=== PATIENT | female | born 1985 | race Caucasian/White ===

== ENCOUNTER 2016-08-23 20:15 | Emergency (ER) | payer MEDICAID ==
[2016-08-23 20:30] LABS: URINE APPEARANCE CLEAR; URINE BILIRUBIN NEGATIVE (NEGATIVE); URINE BLOOD NEGATIVE (NEGATIVE); URINE COLOR YELLOW; URINE GLUCOSE (UA) NEGATIVE (NEGATIVE); URINE KETONE NEGATIVE (NEGATIVE); URINE LEUKOCYTE ESTERASE TRACE (NEGATIVE); URINE NITRITE NEGATIVE (NEGATIVE); URINE PROTEIN NEGATIVE (NEGATIVE); URINE UROBILINOGEN 0.2 E.U./dL (0.20 - 1.00)
[2016-08-23 20:33] LABS: HCG,QUALITATIVE URINE NEGATIVE (NEGATIVE)
--- NOTE | 2016-08-23 20:39 | Emergency Department Record ---
History of Present Illness - General Chief complaint: Female Urogenital Problem Stated complaint: POSS UTI Time Seen by Provider: 08/23/16 20:38 Source: Patient Mode of Arrival: Ambulatory Limitations: No limitations - History of Present Illness Initial comments: The patient is here due to mild dysuria and urinary urgency for 3 days off and on. She denies any AP, nausea, vomiting, fever, or back pain. MD Complaint: Dysuria Onset/Timin -: Days(s) Radiation: Other Severity: Mild Quality: Other Consistency: Intermittent Improves with: None Worsens with: Urination LMP Date: 08/10/16 Gestational Age (wks) based on LMP: 1 Associated Symptoms: Denies other symptoms - Related Data Previous Rx's Medication Instructions Recorded Sulfamethoxazole/Trimethoprim 1 tab PO BID #6 tab 08/23/16 [Bactrim Ds] Allergies Allergy/AdvReac Type Severity Reaction Status Date / Time No Known Allergies Allergy Unverified 04/04/16 12:33 Travel Screening - Travel/Exposure Within Last 30 Days Have you traveled within the last 30 days?: No - Travel/Exposure Within Last Year Have you traveled outside the [place] in the last year?: No - Additonal Travel Details Have you been exposed to anyone with a communicable illness?: No - Travel Symptoms Symptom Screening: None Review of Systems Constitutional: Denies: Chills, Fever Eyes: Denies: Eye discharge ENT: Denies: Congestion Respiratory: Denies: Cough Past Medical History - SOCIAL HISTORY Smoking Status: Current every day smoker Alcohol Use: Occassional Drug Use: None - RESPIRATORY Hx Respiratory Disorders: No - CARDIOVASCULAR Hx Cardio Disorders: No - NEURO Hx Neuro Disorders: No - GI Hx GI Disorders: No - Hx Genitourinary Disorders: No - ENDOCRINE Hx Endocrine Disorders: No - MUSCULOSKELETAL Hx Musculoskeletal Disorders: No - PSYCH Hx Psych Problems: No - HEMATOLOGY/ONCOLOGY Hx Hematology/Oncology Disorders: No Family Medical History Any Significant Family History?: No Physical Exam - General General Appearance: Alert, Oriented x3, Cooperative, No acute distress - Head Head exam: Atraumatic, Normocephalic, Normal inspection - Eye Eye exam: Normal appearance, PERRL - Neck Neck exam: Normal inspection, Full ROM. negative: Tenderness - Respiratory Respiratory exam: Normal lung sounds bilaterally. negative: Respiratory distress - Cardiovascular Cardiovascular Exam: Regular rate, Normal rhythm, Normal heart sounds - GI/Abdominal GI/Abdominal exam: Soft, Normal bowel sounds. negative: Guarding, Rebound, Rigid, Tenderness Course Vital Signs 08/23/16 20:19 Temperature 98.7 F Pulse Rate 80 Respiratory 20 Rate Blood Pressure 116/65 Pulse Ox 100 - Reevaluation(s) Reevaluation #1: I did discuss the plan with the patient and the need for F/U if not better. 08/23/16 20:58 Medical Decision Making - Data Complexity MDM Data: Labs Ordered and/or Reviewed (UA: Mild WBC's and bacteria.) - Lab Data Lab Results 08/23/16 Range/Units 20:31 Urine Color Yellow Urine Appearance Clear Urine pH 6.0 (5.0-8.0) Ur Specific [place] 1.020 (1.002-1.030) Urine Protein Negative (NEGATIVE) Urine Glucose (UA) Negative (NEGATIVE) Urine Ketones Negative (NEGATIVE) Urine Blood Negative (NEGATIVE) Urine Nitrite Negative (NEGATIVE) Urine Bilirubin Negative (NEGATIVE) Urine Urobilinogen 0.2 (0.20 - 1.00) E.U./dL Ur Leukocyte Esterase Trace H (NEGATIVE) Urine HCG, Qual Negative (NEGATIVE) Disposition Disposition: Discharge Clinical Impression: Cystitis Disposition: Home, Self-Care Condition: (1) Good Instructions: Urinary Tract Infection in Women (ED) Additional Instructions: Please take the Bactrim as directed. Please see your PCP if not better in 2-3 days. Return to the ER if worse. Prescriptions: Sulfamethoxazole/Trimethoprim [Bactrim Ds] 1 tab PO BID #6 tab Forms: Patient Portal Access Time of Disposition: 20:59
[2016-08-23 20:51] LABS: URINE BACTERIA FEW; URINE RBC 0 - 2 (NONE SEEN)
[2016-08-23 20:52] LABS: URINE MUCUS LIGHT
[2016-08-23] MEDS: TMP/SMZ 160MG/800MG TAB PO ONE (21:02)
== END 2016-08-23 21:03 | disposition home or self-care (01) ==
LOC: ER 20:15
DX: N30.91 Cystitis, unspecified with hematuria (principal)
CPT/HCPCS: 81001; 81025; J3490; 99282

== ENCOUNTER 2016-08-31 04:56 | Emergency (ER) | payer MEDICAID ==
[2016-08-31 05:07] LABS: URINE APPEARANCE SL CLOUDY; URINE BILIRUBIN NEGATIVE (NEGATIVE); URINE BLOOD LARGE (NEGATIVE); URINE COLOR YELLOW; URINE GLUCOSE (UA) NEGATIVE (NEGATIVE); URINE KETONE NEGATIVE (NEGATIVE); URINE LEUKOCYTE ESTERASE LARGE (NEGATIVE); URINE NITRITE NEGATIVE (NEGATIVE)
[2016-08-31 05:14] LABS: URINE WBC 36 - 50 (0-2/hpf)
[2016-08-31 05:15] LABS: URINE BACTERIA 1+
[2016-08-31] MEDS ORDERED: NITROFURANTOIN MONO 100 MG CAPSULE PO ONE (05:21)
[2016-08-31] MEDS ORDERED: METRONIDAZOLE 250 MG TABLET PO ONE (05:21)
--- NOTE | 2016-08-31 05:21 | Emergency Department Record ---
History of Present Illness - General Chief complaint: Female Urogenital Problem Stated complaint: UTI Time Seen by Provider: 08/31/16 05:15 Source: Patient Mode of Arrival: Ambulatory Limitations: No limitations - History of Present Illness Initial comments: 30 yo female presents to ED with a CC of dysuria symptoms. Patient was seen approximately 1 week ago, diagnosed with UTI and treated with Bactrim for 3 days. Patient reports that the symptoms have worsened following treatment. Patient denies vaginal discharge symptoms but reports "I have a new sexual partner and just want to get checked for everything". Patient denies abdominal pain, nausea, vomiting, or change in stools. MD Complaint: Dysuria Onset/Timin -: Days(s) Severity: Moderate Consistency: Getting worse Improves with: None Worsens with: [place], Urination Patient : No Associated Symptoms: Dysuria - Related Data Sexually active: Yes (new partner 2 weeks ago) Previous Rx's Medication Instructions Recorded Metronidazole [Flagyl] 500 mg PO TID #21 tablet 08/31/16 Nitrofurantoin [place] [Macrobid] 100 mg PO BID #13 capsule 08/31/16 Allergies Allergy/AdvReac Type Severity Reaction Status Date / Time No Known Allergies Allergy Unverified 04/04/16 12:33 Travel Screening - Travel/Exposure Within Last 30 Days Have you traveled within the last 30 days?: No Review of Systems Constitutional: Denies: Chills, Fever, Malaise, Night sweats Eyes: Denies: Eye discharge, Eye pain ENT: Denies: Congestion, Ear pain, Epistaxis Respiratory: Denies: Cough, Dyspnea Cardiovascular: Denies: Chest pain, Dyspnea on exertion, Palpitations Endocrine: Denies: Fatigue, Heat or cold intolerance Gastrointestinal: Denies: Abdominal pain, Nausea, Vomiting Genitourinary: Reports: Dysuria. Denies: Frequency, Hematuria, Incontinence Musculoskeletal: Denies: Arthralgia, Back pain Skin: Denies: Bruising, Change in color Neurological: Denies: Abnormal gait, Confusion, Headache, Seizure Psychiatric: Denies: Anxiety Hematological/Lymphatic: Denies: Anemia, Blood Clots Past Medical History - SOCIAL HISTORY Smoking Status: Current every day smoker Alcohol Use: None Drug Use: None - RESPIRATORY Hx Respiratory Disorders: No - CARDIOVASCULAR Hx Cardio Disorders: No - NEURO Hx Neuro Disorders: No - GI Hx GI Disorders: No - Hx Genitourinary Disorders: No - ENDOCRINE Hx Endocrine Disorders: No - MUSCULOSKELETAL Hx Musculoskeletal Disorders: No - PSYCH Hx Psych Problems: No - HEMATOLOGY/ONCOLOGY Hx Hematology/Oncology Disorders: No Family Medical History Any Significant Family History?: Yes Hx Cancer: Mother, Grandparents *Cancer Comment: M-Colorectal, *Diabetes Comment: Uncle Hx HTN: Grandparents Physical Exam - General General Appearance: Alert, Oriented x3, Cooperative, No acute distress, Other ( on her mobile phone throughtout the examination) Limitations: No limitations - Head Head exam: Atraumatic, Normocephalic, Normal inspection Head exam detail: negative: Abrasion, Contusion, Thomas's sign, General tenderness, Hematoma, Laceration - Eye Eye exam: Normal appearance. negative: Conjunctival injection, Periorbital swelling, Periorbital tenderness, Scleral icterus - ENT Ear exam: negative: Auricular hematoma, Auricular trauma Nasal Exam: negative: Active bleeding, Discharge, Dried blood, Foreign body Mouth exam: negative: Drooling, Laceration, Muffled voice, Tongue elevation - Neck Neck exam: Normal inspection. negative: Meningismus, Tenderness - Respiratory Respiratory exam: Normal lung sounds bilaterally. negative: Respiratory distress, Rhonchi, Stridor, Wheezes - Cardiovascular Cardiovascular Exam: Regular rate, Normal rhythm, Normal heart sounds - GI/Abdominal GI/Abdominal exam: Soft. negative: Distended, Rebound, Rigid, Tenderness - Rectal Rectal exam: Deferred - exam: Cervical discharge (mild). negative: Vaginal bleeding, Vaginal erythema - Extremities Extremities exam: Normal inspection. negative: Calf tenderness, Pedal edema, Tenderness - Back Back exam: Reports: Normal inspection. Denies: CVA tenderness (R), CVA tenderness (L) - Neurological Neurological exam: Alert, Normal gait, Oriented X3 - Psychiatric Psychiatric exam: Normal affect, Normal mood - Skin Skin exam: Normal color. negative: Abrasion Type of lesion: negative: abrasion Course Vital Signs 08/31/16 05:02 Temperature 97.7 F Pulse Rate 88 Respiratory 18 Rate Blood Pressure 118/76 Pulse Ox 98 - Reevaluation(s) Reevaluation #1: 08/31/16 05:22 Wet prep reviewed and appears to have numerous clue cells present. UA reviewed and as well, mild contamination is present, but also c/w UTI. Will treat with Macrobid and Flagyl for treatment of each with instructions to follow-up with her PCP in 3-5 days as directed. Medical Decision Making - Lab Data Lab Results 08/31/16 Range/Units 05:08 Urine Color Yellow Urine Appearance Sl cloudy Urine pH 6.0 (5.0-8.0) Ur Specific [place] 1.025 (1.002-1.030) Urine Protein 100 mg/dl H (NEGATIVE) Urine Glucose (UA) Negative (NEGATIVE) Urine Ketones Negative (NEGATIVE) Urine Blood Large H (NEGATIVE) Urine Nitrite Negative (NEGATIVE) Urine Bilirubin Negative (NEGATIVE) Urine Urobilinogen 1.0 (0.20 - 1.00) E.U./dL Ur Leukocyte Esterase Large H (NEGATIVE) Urine RBC 3 - 6 (NONE SEEN) Urine WBC 36 - 50 (0-2/hpf) Ur Epithelial Cells 3 - 6 (FEW) Urine Bacteria 1+ Disposition Disposition: Discharge Clinical Impression: Bacterial vaginosis Urinary Tract Infection Qualifiers: Urinary tract infection type: acute cystitis Hematuria presence: with hematuria Qualified Code(s): N30.01 - Acute cystitis with hematuria Disposition: Home, Self-Care Condition: (2) Stable Instructions: Bacterial Vaginosis (ED) Additional Instructions: Return to ED if your symptoms worsen or if you have any concerns. Flagyl and Macrobid as directed for 1 week. Follow-up with your family doctor in 3-5 days as directed. Prescriptions: Metronidazole [Flagyl] 500 mg PO TID #21 tablet Nitrofurantoin [place] [Macrobid] 100 mg PO BID #13 capsule Forms: Patient Portal Access Time of Disposition: 05:26
[2016-09-01 16:08] LABS: GC SPECIMEN TYPE Cervix (())
== END 2016-08-31 05:34 | disposition home or self-care (01) ==
LOC: ER 04:56
DX: N76.0 Acute vaginitis (principal); N30.01 Acute cystitis with hematuria
CPT/HCPCS: 99284 ×2; 81001; 87205; 87086; Q0111; 87210

== ENCOUNTER 2016-12-10 18:16 | Emergency (ER) | payer MEDICAID ==
--- NOTE | 2016-12-10 18:38 | Emergency Department Record ---
History of Present Illness - General Chief Complaint: Back Pain/Injury Stated Complaint: ABD PAIN AND LOWER BACK PAIN Time Seen by Provider: 12/10/16 18:18 Source: Patient Mode of Arrival: Ambulatory Limitations: No limitations - History of Present Illness Initial Comments: 31 yo female with a past medical history significant for UTIs presents to ED with dysuria symptoms and low back pain bilaterally that began yesterday morning. Patient denies fevers, chills, or change in stools, denies previous abdominal surgeries, and denies health problems at her baseline. Patient reports taking cranberry pills and Azo without improvement in her symptoms, and the patient denies vaginal discharge symptoms. Patient denies history of kidney stones. MD Complaint: Back pain, Other Onset/Timin -: Days(s) Similar Symptoms Previously: Yes Severity: Moderate Quality: Aching Consistency: Constant Improves With: None Worsens With: Walking Context: Other (Previous UTIs) Associated Symptoms: Abdominal pain, Other Treatments Prior to Arrival: Other medications Treatment Prior to Arrival Comment:: AZO and cranberry pills - Related Data Previous Rx's Medication Instructions Recorded Nitrofurantoin [place] [Macrobid] 100 mg PO BID #14 capsule 12/10/16 Phenazopyridine HCl [Pyridium] 200 mg PO TID #6 tab 12/10/16 Allergies Allergy/AdvReac Type Severity Reaction Status Date / Time No Known Allergies Allergy PT UNSURE Verified 12/10/16 18:22 OF REACTION Travel Screening - Travel/Exposure Within Last 30 Days Have you traveled within the last 30 days?: No - Travel/Exposure Within Last Year Have you traveled outside the [place] in the last year?: No - Additonal Travel Details Have you been exposed to anyone with a communicable illness?: No - Travel Symptoms Symptom Screening: None Review of Systems Constitutional: Denies: Chills, Fever, Malaise, Night sweats Eyes: Denies: Eye discharge, Eye pain ENT: Denies: Congestion, Ear pain, Epistaxis Respiratory: Denies: Cough, Dyspnea Cardiovascular: Denies: Chest pain, Dyspnea on exertion Endocrine: Denies: Fatigue, Heat or cold intolerance Gastrointestinal: Reports: Abdominal pain. Denies: Nausea, Vomiting Genitourinary: Reports: Dysuria, Frequency. Denies: Hematuria, Incontinence, Retention Musculoskeletal: Reports: Back pain. Denies: Arthralgia, Gout, Joint swelling Skin: Denies: Bruising, Change in color Neurological: Denies: Abnormal gait, Confusion, Headache, Tingling Psychiatric: Denies: Anxiety Hematological/Lymphatic: Denies: Anemia, Blood Clots Past Medical History - SOCIAL HISTORY Smoking Status: Current every day smoker Alcohol Use: Rare Drug Use: None - RESPIRATORY Hx Respiratory Disorders: No - CARDIOVASCULAR Hx Cardio Disorders: No - NEURO Hx Neuro Disorders: No - GI Hx GI Disorders: No - Hx Genitourinary Disorders: No - ENDOCRINE Hx Endocrine Disorders: No - MUSCULOSKELETAL Hx Musculoskeletal Disorders: No - PSYCH Hx Psych Problems: No - HEMATOLOGY/ONCOLOGY Hx Hematology/Oncology Disorders: No Family Medical History Any Significant Family History?: Yes Hx Cancer: Mother, Grandparents *Cancer Comment: M-Colorectal, *Diabetes Comment: Uncle Hx HTN: Grandparents Physical Exam - General General Appearance: Alert, Oriented x3, Cooperative, No acute distress Limitations: No limitations - Head Head exam: Atraumatic, Normocephalic, Normal inspection Head exam detail: negative: Abrasion, Contusion, Thomas's sign, General tenderness, Hematoma, Laceration - Eye Eye exam: Normal appearance. negative: Conjunctival injection, Periorbital swelling, Periorbital tenderness, Scleral icterus - ENT Ear exam: negative: Auricular hematoma, Auricular trauma Nasal Exam: negative: Active bleeding, Discharge, Dried blood, Foreign body Mouth exam: negative: Drooling, Laceration, Muffled voice, Tongue elevation - Neck Neck exam: Normal inspection. negative: Meningismus, Tenderness - Respiratory Respiratory exam: Normal lung sounds bilaterally. negative: Respiratory distress, Rhonchi, Stridor, Wheezes - Cardiovascular Cardiovascular Exam: Regular rate, Normal rhythm, Normal heart sounds - GI/Abdominal GI/Abdominal exam: Soft, Tenderness (Mild TTP over samson lower quadrants and suprapubic region bilaterally). negative: Organomegaly, Rebound, Rigid - Rectal Rectal exam: Deferred - exam: Deferred - Extremities Extremities exam: Normal inspection. negative: Calf tenderness, Pedal edema, Tenderness - Back Back exam: Denies: CVA tenderness (R), CVA tenderness (L) - Neurological Neurological exam: Alert, Normal gait, Oriented X3 - Psychiatric Psychiatric exam: Normal affect, Normal mood - Skin Skin exam: Normal color. negative: Abrasion Type of lesion: negative: abrasion Course Vital Signs 12/10/16 18:23 Temperature 98.1 F Pulse Rate 74 Respiratory 18 Rate Blood Pressure 133/82 Pulse Ox 98 - Reevaluation(s) Reevaluation #1: 12/10/16 19:29 UA reviewed, appears contaminated but also c/w UTI. Offered the patient laboratory studies (declined), and offered transfer for US imaging of the pelvis (declined). Will initiate treatment with Macrobid and Pyridium for her symptoms. Patient's examination does not appear c/w appendicitis, CT imaging does not appear indicated at this time. Patient has no unilateral flank pain symptoms to suggest ureteral calculus either. Patient appears stable for discharge with treatment for UTI per her preference. Patient was encouraged to return for any worsening of her symptoms. Disposition Disposition: Discharge Clinical Impression: UTI (urinary tract infection) Qualifiers: Urinary tract infection type: acute cystitis Hematuria presence: with hematuria Qualified Code(s): N30.01 - Acute cystitis with hematuria Disposition: Home, Self-Care Condition: (2) Stable Instructions: Urinary Tract Infection in Women (ED) Additional Instructions: Return to ED if your symptoms worsen or if you have any concerns. Macrobid and Pyridium as directed. Follow-up with your family doctor in 1-3 days as directed. Prescriptions: Nitrofurantoin [place] [Macrobid] 100 mg PO BID #14 capsule Phenazopyridine HCl [Pyridium] 200 mg PO TID #6 tab Forms: Patient Portal Access Time of Disposition: 19:34
[2016-12-10 18:50] LABS: URINE APPEARANCE CLEAR; URINE BILIRUBIN NEGATIVE (NEGATIVE); URINE BLOOD MODERATE (NEGATIVE); URINE COLOR YELLOW; URINE GLUCOSE (UA) NEGATIVE (NEGATIVE); URINE KETONE NEGATIVE (NEGATIVE); URINE LEUKOCYTE ESTERASE MODERATE (NEGATIVE); URINE NITRITE NEGATIVE (NEGATIVE); URINE PROTEIN TRACE (NEGATIVE); URINE UROBILINOGEN 0.2 E.U./dL (0.20 - 1.00)
[2016-12-10 18:58] LABS: URINE BACTERIA 2+; URINE WBC 21 - 35 (0-2/hpf)
[2016-12-10] MEDS: IBUPROFEN 400 MG TABLET PO ONE (19:27)
[2016-12-10] MEDS: NITROFURANTOIN MONO 100 MG CAPSULE PO ONE (19:49)
[2016-12-10] MEDS: PHENAZOPYRIDINE HCL 95 MG TABLET PO ONE (19:49)
[2016-12-10] MEDS ORDERED: AMOXICILLIN 400 MG/5 ML ML PO ONE (19:54)
== END 2016-12-10 19:54 | disposition home or self-care (01) ==
LOC: ER 18:16
DX: N30.01 Acute cystitis with hematuria (principal); M54.5 Low back pain
CPT/HCPCS: 81001; 99282

== ENCOUNTER 2017-07-16 19:51 | Emergency (ER) | payer MEDICAID ==
[2017-07-16] MEDS ORDERED: CEPHALEXIN 500 MG CAPSULE PO STA (20:17)
--- NOTE | 2017-07-16 20:20 | Emergency Department Record ---
History of Present Illness - General Chief Complaint: Ankle/Foot Injury Stated Complaint: RT ANKLE SWELLING Source: Patient Mode of Arrival: Ambulatory Limitations: No limitations - History of Present Illness Initial Comments: 31 yo female presents to ED for evaluation of redness, pain, and soft-tissue- swelling over the right lateral ankle that began this morning. Patient denies injury, denies fevers, chills, or recent illness. Patient denies calf pain or swelling symptoms, and denies health problems at her baseline. Patient does reports that she is 23 weeks . MD Complaint: Other (ankle swelling/pain) Onset/Timin -: Days(s) Injury: Ankle: Right Place: Home Severity: Moderate Improves With: Nothing Worsens With: Nothing Associated Symptoms: Swelling - Related Data Home Medications Medication Instructions Recorded Confirmed Last Taken Bupropion HCl [Wellbutrin Xl] 150 mg PO DAILY 07/16/17 07/16/17 Unknown Fluoxetine HCl [Prozac] 40 mg PO DAILY 07/16/17 07/16/17 Unknown Pnv No.95/Ferrous Fum/Folic AC 1 each PO DAILY 07/16/17 07/16/17 Unknown [ Multivitamin Tablet] Previous Rx's Medication Instructions Recorded Cephalexin [Keflex] 500 mg PO QID #27 cap 07/16/17 Allergies Allergy/AdvReac Type Severity Reaction Status Date / Time No Known Allergies Allergy PT UNSURE Verified 12/10/16 18:22 OF REACTION Review of Systems Constitutional: Denies: Chills, Fever, Malaise, Night sweats Eyes: Denies: Eye discharge, Eye pain ENT: Denies: Congestion, Ear pain, Epistaxis Respiratory: Denies: Cough, Dyspnea Cardiovascular: Denies: Chest pain, Dyspnea on exertion Endocrine: Denies: Fatigue, Heat or cold intolerance Gastrointestinal: Denies: Abdominal pain, Nausea, Vomiting Genitourinary: Denies: Incontinence, Retention Musculoskeletal: Denies: Arthralgia, Back pain Skin: Reports: Change in color (redness to the right lateral ankle). Denies: Bruising Neurological: Denies: Abnormal gait, Confusion, Headache, Seizure Psychiatric: Denies: Anxiety Hematological/Lymphatic: Denies: Anemia, Blood Clots Past Medical History - SOCIAL HISTORY Smoking Status: Current every day smoker Drug Use: None - RESPIRATORY Hx Respiratory Disorders: No - CARDIOVASCULAR Hx Cardio Disorders: No - NEURO Hx Neuro Disorders: No - GI Hx GI Disorders: No - Hx Genitourinary Disorders: No - ENDOCRINE Hx Endocrine Disorders: No - MUSCULOSKELETAL Hx Musculoskeletal Disorders: No - PSYCH Hx Psych Problems: No - HEMATOLOGY/ONCOLOGY Hx Hematology/Oncology Disorders: No Family Medical History Hx Cancer: Mother, Grandparents *Cancer Comment: M-Colorectal, *Diabetes Comment: Uncle Hx HTN: Grandparents Physical Exam - General General Appearance: Alert, Oriented x3, Cooperative, No acute distress Limitations: No limitations - Head Head exam: Atraumatic, Normocephalic, Normal inspection Head exam detail: negative: Abrasion, Contusion, Thomas's sign, General tenderness, Hematoma, Laceration - Eye Eye exam: Normal appearance. negative: Conjunctival injection, Periorbital swelling, Periorbital tenderness, Scleral icterus - ENT Ear exam: negative: Auricular hematoma, Auricular trauma Nasal Exam: negative: Active bleeding, Discharge, Dried blood, Foreign body Mouth exam: negative: Drooling, Laceration, Muffled voice, Tongue elevation - Neck Neck exam: Normal inspection. negative: Meningismus, Tenderness - Respiratory Respiratory exam: Normal lung sounds bilaterally. negative: Rales, Respiratory distress, Rhonchi, Stridor - Cardiovascular Cardiovascular Exam: Regular rate, Normal rhythm, Normal heart sounds - GI/Abdominal GI/Abdominal exam: Soft. negative: Rebound, Rigid, Tenderness - Rectal Rectal exam: Deferred - exam: Deferred - Extremities Extremities exam: Tenderness, Other (Mild STS/erythema to the right lateral ankle, mild induration present, no fluctuance present. Symptoms appear c/w cellulitis, no cliniacl evidence for abscess. No calf pain/popliteal pain symptoms are present on examination.). negative: Calf tenderness, Pedal edema - Back Back exam: Denies: CVA tenderness (R), CVA tenderness (L) - Neurological Neurological exam: Alert, Normal gait, Oriented X3 - Psychiatric Psychiatric exam: Normal affect, Normal mood - Skin Skin exam: Erythema Type of lesion: negative: abrasion Distribution of rash: RLE Course Vital Signs 07/16/17 20:12 Temperature 98.8 F Pulse Rate [ 90 Pulse Ox Probe] Respiratory 20 Rate Blood Pressure 116/64 [Left Arm] Pulse Ox 100 - Reevaluation(s) Reevaluation #1: 07/16/17 20:27 Symptoms appear c/w cellulitis, will initiate treatment with Keflex (no previous MRSA history), patient appears stable for discharge at this time. Disposition Disposition: Discharge Clinical Impression: Cellulitis Qualifiers: Site of cellulitis: extremity Site of cellulitis of extremity: lower extremity Laterality: right Qualified Code(s): L03.115 - Cellulitis of right lower limb Disposition: Home, Self-Care Condition: (2) Stable Instructions: Cellulitis (ED) Additional Instructions: Return to ED if your symptoms worsen or if you have any concerns. Keflex as directed. Follow-up with your family doctor in 3-5 days as directed. Prescriptions: Cephalexin [Keflex] 500 mg PO QID #27 cap Forms: Patient Portal Access Time of Disposition: 20:19 Quality - Quality Measures Quality Measures: N/A - Blood Pressure Screening Does Patient Have Any of the Following: No Blood Pressure Classification: Normal BP Reading Systolic Measurement: 118 Diastolic Measurement: 64 Screening for High Blood Pressure: < Normal BP, F/U Not Required > [[id number]]
== END 2017-07-16 20:36 | disposition home or self-care (01) ==
LOC: ER 19:51
DX: L03.115 Cellulitis of right lower limb (principal)
CPT/HCPCS: 99282

== ENCOUNTER 2018-07-27 16:07 | Emergency (ER) | payer MEDICAID ==
[2018-07-27 16:54] LABS: BASO % 0.2 % (0-6); GRAN % 66.7 % (47-80); HEMATOCRIT 39.5 % (35.0-47.0); HEMOGLOBIN 12.9 gm/dl (11.6-16.0); LYMPH % 25.9 % (16-45); MEAN CELL VOLUME 88.8 fl (81-97); MEAN CORPUSCULAR HGB CONC 32.7 g/dl (32-36); MEAN PLATELET VOLUME 10.2 fl (7.4-10.4); MONO % 5.2 % (0-9); PLATELET COUNT 238 K/uL (130-400); RED BLOOD COUNT 4.45 M/uL (3.80-5.40); RED CELL DISTRIBUTION WIDTH 14.1 % (11.5-14.5); WHITE BLOOD COUNT W/O DIFF 8.8 K/uL (4.2-12.2)
[2018-07-27] MEDS: CLINDAMYCIN 600MG/50ML PREMIX 600 MG/50 ML BAG IVPB ONE (16:56)
--- NOTE | 2018-07-27 17:56 | Emergency Department Record ---
History of Present Illness - General Chief complaint: Extremity Problem Stated complaint: INFECTION ON RT FOOT Time Seen by Provider: 07/27/18 16:18 Source: Patient Mode of Arrival: Ambulatory Limitations: No limitations - History of Present Illness Initial comments: pt has had a cyst on her lateral malleolus for a year. she was told it was a ganglion cyst. she banged it and now it is red, has swelling. she went to [facility] yesterday and was started on keflex. it has gotten worse. MD Complaint: Extremity pain, Extremity swelling Onset/Timin -: Days(s) Location: Right, Ankle History of Same: No Severity scale (1-10): 6 Quality: Aching Consistency: Constant Improves with: Immobilization Worsens with: Walking, Weight bearing Associated Symptoms: Denies other symptoms - Related Data Previous Rx's Medication Instructions Recorded Clindamycin HCl 150 mg PO Q8HR #30 capsule 07/27/18 Clindamycin HCl 300 mg PO Q8HR #30 capsule 07/27/18 Hydrocodone/Acetaminophen [[place] 1 each PO Q6HR #7 tablet 07/27/18 5-325 Tablet] Allergies Allergy/AdvReac Type Severity Reaction Status Date / Time No Known Allergies Allergy PT UNSURE Verified 07/27/18 16:16 OF REACTION Travel Screening - Travel/Exposure Within Last 30 Days Have you traveled within the last 30 days?: No Review of Systems Reviewed: No additional complaints except as noted below Constitutional: Reports: As per HPI. Denies: Chills, Fever, Malaise, Night sweats, Weakness, Weight change Eyes: Reports: As per HPI. Denies: Eye discharge, Eye pain, Photophobia, Vision change ENT: Reports: As per HPI. Denies: Congestion, Dental pain, Ear pain, Epistaxis , Hearing loss, Throat pain Respiratory: Reports: As per HPI. Denies: Cough, Dyspnea, Hemoptysis, Stridor, Wheezes Cardiovascular: Reports: As per HPI. Denies: Arrhythmia, Chest pain, Dyspnea on exertion, Edema, Murmurs, Orthopnea, Palpitations, Paroxysmal nocturnal dyspnea, Rheumatic Fever, Syncope Endocrine: Reports: As per HPI. Denies: Fatigue, Heat or cold intolerance, Polydipsia, Polyuria Gastrointestinal: Reports: As per HPI. Denies: Abdominal pain, Constipation, Diarrhea, Hematemesis, Hematochezia, Melena, Nausea, Vomiting Genitourinary: Reports: As per HPI. Denies: Abnormal menses, Discharge, Dyspareunia, Dysuria, Frequency, Hematuria, Incontinence, Retention, Urgency Musculoskeletal: Reports: As per HPI. Denies: Arthralgia, Back pain, Gout, Joint swelling, Myalgia, Neck pain Skin: Reports: As per HPI. Denies: Bruising, Change in color, Change in hair/ nails, Lesions, Pruritus, Rash Neurological: Reports: As per HPI. Denies: Abnormal gait, Confusion, Headache, Numbness, Paresthesias, Seizure, Tingling, Tremors, Vertigo, Weakness Psychiatric: Reports: As per HPI. Denies: Anxiety, Auditory hallucinations, Depression, Homicidal thoughts, Suicidal thoughts, Visual hallucinations Hematological/Lymphatic: Reports: As per HPI. Denies: Anemia, Blood Clots, Easy bleeding, Easy bruising, Swollen glands Past Medical History - SOCIAL HISTORY Smoking Status: Current every day smoker - RESPIRATORY Hx Respiratory Disorders: No - CARDIOVASCULAR Hx Cardio Disorders: No - NEURO Hx Neuro Disorders: No - GI Hx GI Disorders: No - Hx Genitourinary Disorders: No - ENDOCRINE Hx Endocrine Disorders: No - MUSCULOSKELETAL Hx Musculoskeletal Disorders: No - PSYCH Hx Psych Problems: No - HEMATOLOGY/ONCOLOGY Hx Hematology/Oncology Disorders: No Family Medical History Any Significant Family History?: Yes Hx Cancer: Mother, Grandparents *Cancer Comment: M-Colorectal, *Diabetes Comment: Uncle Hx HTN: Grandparents Physical Exam - General General Appearance: Alert, Oriented x3, Cooperative, Mild distress - Head Head exam: Normal inspection - Eye Eye exam: Normal appearance, PERRL, EOMI Pupils: Normal accommodation - ENT ENT exam: Normal exam, Mucous membranes moist, Normal external ear exam, Normal orophraynx Ear exam: Normal external inspection. negative: External canal tenderness Nasal Exam: Normal inspection. negative: Discharge, Sinus tenderness Mouth exam: Normal external inspection, Tongue normal Teeth exam: Normal inspection. negative: Dental caries Throat exam: Normal inspection. negative: Tonsillar erythema, Tonsillar exudate - Neck Neck exam: Normal inspection, Full ROM. negative: Tenderness - Respiratory Respiratory exam: Normal lung sounds bilaterally. negative: Respiratory distress - Cardiovascular Cardiovascular Exam: Regular rate, Normal rhythm, Normal heart sounds - GI/Abdominal GI/Abdominal exam: Soft, Normal bowel sounds. negative: Tenderness - Rectal Rectal exam: Deferred - exam: Deferred - Extremities Extremities exam: Normal inspection, Full ROM, Normal capillary refill. negative: Tenderness Image of Feet: 1 - swelling, tender, erythema - Back Back exam: Reports: Normal inspection, Full ROM. Denies: Muscle spasm, Rash noted, Tenderness - Neurological Neurological exam: Alert, CN II-XII intact, Normal gait, Oriented X3 - Psychiatric Psychiatric exam: Normal affect, Normal mood - Skin Skin exam: Dry, Intact, Normal color, Warm Course Vital Signs 07/27/18 16:10 Temperature 98.0 F Pulse Rate 76 Respiratory 18 Rate Blood Pressure 136/88 Pulse Ox 99 - Reevaluation(s) Reevaluation #1: 07/27/18 18:01 pt does not want to be admitted. she was told to come back in the morning for a recheck and is started on clindamycin Medical Decision Making - Lab Data Result diagrams: 07/27/18 16:40 Lab Results 07/27/18 Range/Units 16:40 WBC 8.8 (4.2-12.2) K/uL RBC 4.45 (3.80-5.40) M/uL Hgb 12.9 (11.6-16.0) gm/dl Hct 39.5 (35.0-47.0) % MCV 88.8 (81-97) fl MCH 29.0 (27-33) pg MCHC 32.7 (32-36) g/dl RDW 14.1 (11.5-14.5) % Plt Count 238 (130-400) K/uL MPV 10.2 (7.4-10.4) fl Gran % 66.7 (47-80) % Lymphocytes % 25.9 (16-45) % Monocytes % 5.2 (0-9) % Eosinophils % 2.0 (0-6) % Basophils % 0.2 (0-6) % Disposition Disposition: Discharge Clinical Impression: Cellulitis of right ankle Disposition: Home, Self-Care Condition: (1) Good Instructions: Cellulitis (ED) Additional Instructions: return in hearing therapist for recheck and possible admission. return sooner if worse. elevate foot. continue antibiotics Prescriptions: Hydrocodone/Acetaminophen [[place] 5-325 Tablet] 1 each PO Q6HR #7 tablet Clindamycin HCl 150 mg PO Q8HR #30 capsule Clindamycin HCl 300 mg PO Q8HR #30 capsule Quality - Quality Measures Quality Measures: N/A - Blood Pressure Screening Does Patient Have Any of the Following: No Blood Pressure Classification: Pre-Hypertensive BP Reading Systolic Measurement: 136 Diastolic Measurement: 88 Screening for High Blood Pressure: < Pre-Hypertensive BP, F/U Documented > [ G8950] Pre-Hypertensive Follow-up Interventions: Follow-up with rescreen every year.
--- NOTE | 2018-07-30 06:43 | RADIOLOGY REPORT ---
DATE: 07/27/2018. EXAM: RIGHT ANKLE RADIOGRAPHS. HISTORY: RIGHT LATERAL ANKLE PAIN, REDNESS, AND SWELLING. TECHNIQUE: Three views of the right ankle. COMPARISON: None. FINDINGS: Prominent rounded lateral ankle soft tissue swelling. No acute fracture is seen. No focal osseous erosion or appreciable periosteal reaction. No evidence of dislocation. No radiopaque foreign bodies. Small, chronic-appearing fragment at the tip of the medial malleolus compatible with old trauma. IMPRESSION: ABOVE. JOB [facility]BER: [id number] [facility]
== END 2018-07-27 18:31 | disposition home or self-care (01) ==
LOC: ER 16:07
DX: L03.115 Cellulitis of right lower limb (principal); F17.210 Nicotine dependence, cigarettes, uncomplicated
CPT/HCPCS: 85025; 96365; 99284

== ENCOUNTER 2018-07-28 04:42 | Emergency (ER) | payer MEDICAID ==
--- NOTE | 2018-07-28 05:10 | Emergency Department Record ---
History of Present Illness - General Chief complaint: Abscess Stated complaint: CELLULITIS Time Seen by Provider: 07/28/18 04:56 Source: Patient Mode of Arrival: Ambulatory Limitations: No limitations - History of Present Illness Initial comments: 32 yo female presents to ED for re-evaluation of redness, swelling of the right lateral ankle. Patient reports that she bumped the area resulting in mild injury 5-6 days ago, was seen in [facility] 2 days ago and started on Keflex. Patient returned last evening for reassessment, was started on Clindamycin and told to return in 12 hours for reassessment. Patient is concerned that the redness may be worsening beyond the marked borders. Patient denies history of DM or health problems at her baseline. MD complaint: Rash Onset/Timin -: Days(s) Location: RLE Severity: Moderate Consistency: Constant Improves with: None Worsens with: None Context: Recent antibiotic Associated symptoms: Denies other symptoms Treatments Prior to Arrival: Antibiotic - Related Data Previous Rx's Medication Instructions Recorded Clindamycin HCl 150 mg PO Q8HR #30 capsule 07/27/18 Clindamycin HCl 300 mg PO Q8HR #30 capsule 07/27/18 Hydrocodone/Acetaminophen [[place] 1 each PO Q6HR #7 tablet 07/27/18 5-325 Tablet] Allergies Allergy/AdvReac Type Severity Reaction Status Date / Time No Known Allergies Allergy PT UNSURE Verified 07/27/18 16:16 OF REACTION Travel Screening - Travel/Exposure Within Last 30 Days Have you traveled within the last 30 days?: No - Travel Symptoms Symptom Screening: None Review of Systems Constitutional: Denies: Chills, Malaise, Night sweats Eyes: Denies: Eye discharge, Eye pain ENT: Denies: Congestion, Ear pain, Epistaxis Respiratory: Denies: Cough, Dyspnea Cardiovascular: Denies: Chest pain, Dyspnea on exertion Endocrine: Denies: Fatigue, Heat or cold intolerance Gastrointestinal: Denies: Abdominal pain, Nausea, Vomiting Genitourinary: Denies: Incontinence, Retention Musculoskeletal: Denies: Arthralgia, Back pain Skin: Reports: Change in color. Denies: Bruising, Change in hair/nails, Rash Neurological: Denies: Confusion, Headache, Seizure Psychiatric: Denies: Anxiety Hematological/Lymphatic: Denies: Anemia, Blood Clots Past Medical History - SOCIAL HISTORY Smoking Status: Current every day smoker Alcohol Use: None Drug Use: None - RESPIRATORY Hx Respiratory Disorders: No - CARDIOVASCULAR Hx Cardio Disorders: No - NEURO Hx Neuro Disorders: No - GI Hx GI Disorders: No - Hx Genitourinary Disorders: No - ENDOCRINE Hx Endocrine Disorders: No - MUSCULOSKELETAL Hx Musculoskeletal Disorders: No - PSYCH Hx Psych Problems: No - HEMATOLOGY/ONCOLOGY Hx Hematology/Oncology Disorders: No Family Medical History Any Significant Family History?: Yes Hx Cancer: Mother, Grandparents *Cancer Comment: M-Colorectal, *Diabetes Comment: Uncle Hx HTN: Grandparents Physical Exam - General General Appearance: Alert, Oriented x3, Cooperative, Mild distress Limitations: No limitations - Head Head exam: Atraumatic, Normocephalic, Normal inspection Head exam detail: negative: Abrasion, Contusion, Thomas's sign, General tenderness, Hematoma, Laceration - Eye Eye exam: Normal appearance. negative: Conjunctival injection, Periorbital swelling, Periorbital tenderness, Scleral icterus - ENT Ear exam: negative: Auricular hematoma, Auricular trauma Nasal Exam: negative: Active bleeding, Discharge, Dried blood, Foreign body Mouth exam: negative: Drooling, Laceration, Muffled voice, Tongue elevation - Neck Neck exam: Normal inspection. negative: Meningismus, Tenderness - Respiratory Respiratory exam: Normal lung sounds bilaterally. negative: Rales, Respiratory distress, Rhonchi, Stridor - Cardiovascular Cardiovascular Exam: Regular rate, Normal rhythm, Normal heart sounds - GI/Abdominal GI/Abdominal exam: Soft. negative: Rebound, Rigid, Tenderness - Rectal Rectal exam: Deferred - exam: Deferred - Extremities Extremities exam: Tenderness, Other (Mild TTP, STS to the right latera ankle c/ w cutaneous abscess with surrounding erythema present extending to the previously marked border, but not beyond.). negative: Calf tenderness, Pedal edema - Back Back exam: Denies: CVA tenderness (R), CVA tenderness (L) - Neurological Neurological exam: Alert, Normal gait, Oriented X3 - Psychiatric Psychiatric exam: Normal affect, Normal mood - Skin Skin exam: Erythema Type of lesion: Abscess Distribution of rash: RLE Description of rash: Fluctuant, Indurated Course Vital Signs 07/28/18 04:46 Temperature 98.8 F Pulse Rate 93 H Respiratory 12 Rate Blood Pressure 124/77 Pulse Ox 96 - Reevaluation(s) Reevaluation #1: 07/28/18 05:16 1.5 cm cutaneous abscess overlying the right lateral ankle region was prepped and draped in sterile fashion. The lesion was then anesthetized with 1.0 mL of 1% Lidocaine with epinephrine with good anesthesia. The lesion was then incised with a #11 blade with moderate amount of purulent drainage removed. Lesion was then probed with curved hemostats to break up loculations. Patient tolerated the procedure well without complications. Patient was started on Clindamycin yesterday, instructed to continue as prescribed. Instructed to apply warm soaks twice daily. Patient appears stable for discharge at this time. Disposition Disposition: Discharge Clinical Impression: Abscess of ankle Disposition: Home, Self-Care Condition: (2) Stable Instructions: Abscess Incision and Drainage (ED) Additional Instructions: Return to ED if your symptoms worsen or if you have any concerns. Continue Clindamycin as directed. Follow-up with your family doctor in 3-5 days as directed. Forms: Patient Portal Access Time of Disposition: 05:10 Quality - Quality Measures Quality Measures: N/A - Blood Pressure Screening Does Patient Have Any of the Following: No Blood Pressure Classification: Pre-Hypertensive BP Reading Systolic Measurement: 124 Diastolic Measurement: 77 Screening for High Blood Pressure: < Pre-Hypertensive BP, F/U Documented > [ G8950] Pre-Hypertensive Follow-up Interventions: Referral to alternative/primary care provider.
== END 2018-07-28 05:14 | disposition home or self-care (01) ==
LOC: ER 04:42
DX: L02.415 Cutaneous abscess of right lower limb (principal); F17.210 Nicotine dependence, cigarettes, uncomplicated
CPT/HCPCS: 10060; 99284